=== PATIENT | female | born 2000 | race Asian ===

== ENCOUNTER 2021-08-23 19:59 | Emergency (ER) | payer OTHER ==
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
[2021-08-23 22:22] VITALS: BP 121/71
[2021-08-23] MEDS ORDERED: CYCLOBENZAPRINE 10 MG TAB PO ONE (23:37)
[2021-08-23] MEDS ORDERED: methylPREDNISolone ACETATE 80 MG/1 ML INJ IM ONE (23:37)
== END 2021-08-23 23:56 | disposition home or self-care (01) ==
LOC: ED 19:59
DX: S90.00XA Contusion of unspecified ankle, initial encounter (principal); S39.012A Strain of muscle, fascia and tendon of lower back, initial encounter; Z79.899 Other long term (current) drug therapy; F07.81 Postconcussional syndrome; V89.2XXA Person injured in unspecified motor-vehicle accident, traffic, initial encounter; Y93.89 Activity, other specified; Y92.89 Other specified places as the place of occurrence of the external cause; Y99.8 Other external cause status
CPT/HCPCS: 70450; 71045; 72080; 72125; 99284; J1040